=== PATIENT | male | born 1955 | race Caucasian/White ===

== ENCOUNTER 2019-07-19 09:58 | Outpatient (CLI) | payer OTHER ==
[~2019-07-19] VITALS: Ht 170.2 cm; Wt 99.8 kg
[~2019-07-19 09:58] MED LIST: CLONAZEPAM1 MG PO; DIOVAN HCT 320/1 TA2 PO; GLIPIZIDE10 MG PO; TRILIPIX135 MG PO; ZANTAC150 M3 PO
== END 2019-07-19 10:40 | disposition home or self-care (01) ==
LOC: OFIC 805 09:58
PROVIDERS: ATTEND Otolaryngology
DX: H90.3 Sensorineural hearing loss, bilateral (principal); H61.23 Impacted cerumen, bilateral

== ENCOUNTER 2019-07-28 13:49 | Outpatient (CLI) | payer OTHER | END 2019-07-28 14:01 | disposition home or self-care (01) | LOC: SONOGRAMA 13:49 | PROVIDERS: ATTEND Internal Medicine | DX: N20.0 Calculus of kidney (principal); K71.3 Toxic liver disease with chronic persistent hepatitis ==

== ENCOUNTER 2019-08-09 15:03 | Emergency (ER) | payer OTHER ==
[~2019-08-09] VITALS: Ht 170.2 cm; Wt 97.5 kg
[2019-08-09] MEDS ORDERED: DOXAZOSIN MESYLA2 MG (16:10)
[2019-08-09] MEDS ORDERED: METFORMIN HCL500 M3 (16:11)
[2019-08-09] MEDS ORDERED: LEVO-T50 MCG (16:11)
[2019-08-09] MEDS ORDERED: ADALAT CC60 MG (16:11)
== END 2019-08-09 18:42 | disposition home or self-care (01) ==
LOC: ER 15:03
DX: I16.1 Hypertensive emergency (principal); I10 Essential (primary) hypertension; F41.8 Other specified anxiety disorders; N39.0 Urinary tract infection, site not specified